=== PATIENT | female | born 1965 | race Caucasian/White ===

== ENCOUNTER 2018-03-11 06:31 | Observation (INO) | payer OTHER, MEDICARE, MEDICAID, BC ==
[2018-03-11] MEDS: SOD CHLORIDE 0.9% 1,000 ML IV (06:00)
[2018-03-11 08:18] LABS: ADD MAN DIFF? NO
[2018-03-11 08:33] LABS: ALANINE AMINOTRANSFERASE 9 IU/L (13-69); ALBUMIN 4.2 g/dl (3.3-4.9); ALKALINE PHOSPHATASE 175 IU/L (42-121); ANION GAP 19 (8-16); ASPARTATE AMINO TRANSFERASE 18 IU/L (15-46); BILIRUBIN,INDIRECT 0.3 mg/dl (0-1.1); BILIRUBIN,TOTAL 0.3 mg/dl (0.2-1.3); CARBON DIOXIDE 27 mmol/L (21-31); CHLORIDE 102 mmol/L (97-110); CHOLESTEROL 129 mg/dl (100-200); CREATINE KINASE 94 IU/L (23-200); GLUCOSE 205 mg/dl (70-220); HDL CHOLESTEROL 62 mg/dl (37-92); LDL CHOLESTEROL,CALCULATED 42 mg/dl; TOTAL PROTEIN 7.7 g/dl (6.1-8.1); TRIGLYCERIDES 123 mg/dl (0-149)
[2018-03-11 08:36] LABS: BASOPHIL # 0.1 10^3/ul (0.0-0.1); BASOPHILS % 0.7 % (0.0-2.0); EOSINOPHILS # 0.1 10^3/ul (0.0-0.5); EOSINOPHILS % 1.4 % (0.0-7.0); HEMATOCRIT 35.4 % (37.0-47.0); HEMOGLOBIN 11.2 g/dl (12.0-16.0); LYMPHOCYTES # 1.7 10^3/ul (0.8-2.9); LYMPHOCYTES % 23.2 % (15.0-51.0); MEAN CORPUSCULAR HEMOGLOBIN 31.4 pg (29.0-33.0); MEAN CORPUSCULAR HGB CONC 31.6 g/dl (32.0-37.0); MEAN CORPUSCULAR VOLUME 99.2 fl (82.0-101.0); MEAN PLATELET VOLUME 10.8 fl (7.4-10.4); MONOCYTE # 0.6 10^3/ul (0.3-0.9); MONOCYTES % 8.1 % (0.0-11.0); NEUTROPHIL # 4.9 10^3/ul (1.6-7.5); NEUTROPHILS % 66.3 % (39.0-77.0); PLATELET COUNT 175 10^3/UL (140-415); RED BLOOD COUNT 3.57 10^6/ul (4.20-5.40); RED CELL DISTRIBUTION WIDTH 12.3 % (11.5-14.5)
[2018-03-11 08:36] LABS: WHITE BLOOD COUNT 7.3 10^3/ul (4.8-10.8)
[2018-03-11 08:39] LABS: INR 1.09; PROTIME 14.2 Sec (11.9-14.9); PT RATIO 1.1
[2018-03-11 08:40] LABS: PARTIAL THROMBOPLASTIN TIME 29.6 Sec (25.0-35.0)
[2018-03-11 08:45] LABS: CK INDEX 1.7; CK-MB 1.57 ng/ml (0.0-2.4); SODIUM 141 mmol/L (135-144); TROPONIN-I 0.018 ng/ml (0.000-0.120)
[2018-03-11 08:46] LABS: BLOOD UREA NITROGEN 46 mg/dl (7-20); CALCIUM 9.2 mg/dl (8.4-10.2); CREATININE 4.44 mg/dl (0.44-1.00)
[2018-03-11 08:54] LABS: POTASSIUM 6.8 mmol/L (3.5-5.1)
[2018-03-11] MEDS ORDERED: MIDAZOLAM 1 MG/ML 2 ML INJ (08:55)
[2018-03-11] MEDS ORDERED: FENTAnyl 50 MCG/ML VIAL (08:55)
[2018-03-11] MEDS ORDERED: traMADol 50 MG TAB PO (09:30)
[2018-03-11] MEDS ORDERED: METOCLOPRAMIDE 5 MG TAB PO (09:30)
[2018-03-11] MEDS ORDERED: GLUCOSE GEL 15 GRAM TUBE BUCCAL (11:30)
[2018-03-11] MEDS ORDERED: GLUCOSE GEL 15 GRAM TUBE PO ×2 (11:30)
[2018-03-11] MEDS ORDERED: DEXTROSE 50% 50 ML SYRINGE IV ×2 (11:30)
[2018-03-11] MEDS ORDERED: GLUCAGON 1 MG INJ IM (11:30)
[2018-03-11] MEDS ORDERED: INSULIN ASPART [NOVOLOG] 3 ML PEN SC (12:00)
[2018-03-11] MEDS: SEVELAMER 800 MG TAB PO ×2 (13:02→18:17)
[2018-03-11] MEDS: INSULIN ASPART [NOVOLOG] 3 ML PEN SC ×2 (13:08→18:19)
[2018-03-11 15:19] LABS: HEPATITIS B SURFACE ANTIGEN NEGATIVE (NEGATIVE)
[2018-03-11] MEDS ORDERED: ATORVASTATIN 40 MG TAB PO (21:00)
[2018-03-12] MEDS ORDERED: ACCU-CHEK XX ×2 (02:00)
[2018-03-12] MEDS ORDERED: PANTOPRAZOLE (EC) 40 MG TAB PO (07:00)
[2018-03-12] MEDS ORDERED: ASPIRIN (EC) 81 MG TAB PO (09:00)
[2018-03-12] MEDS ORDERED: FUROSEMIDE 40 MG TAB PO (09:00)
[2018-03-12] MEDS ORDERED: CLOPIDOGREL 75 MG TAB PO (09:00)
[2018-03-12] MEDS ORDERED: CITALOPRAM 20 MG TAB PO (09:00)
[2018-03-12] MEDS ORDERED: ISOSORBIDE MONONITRATE(SR)30 MG TAB PO (09:00)
[2018-03-12] MEDS ORDERED: glipiZIDE (XL) 5 MG TAB PO (09:00)
== END 2018-03-11 20:45 | disposition home or self-care (01) ==
LOC: SDS 06:31 → MS2 10:47
DX: I12.0 Hypertensive chronic kidney disease with stage 5 chronic kidney disease or end stage renal disease (principal); E11.22 Type 2 diabetes mellitus with diabetic chronic kidney disease; N18.6 End stage renal disease; Z99.2 Dependence on renal dialysis; E87.5 Hyperkalemia; D64.9 Anemia, unspecified; M89.9 Disorder of bone, unspecified; E78.5 Hyperlipidemia, unspecified; I25.10 Atherosclerotic heart disease of native coronary artery without angina pectoris; Z95.1 Presence of aortocoronary bypass graft
CPT/HCPCS: 80053; 80061; 82550; 82553; 82962; 84484; 85025; 85610; 85730; 87340; 90935